=== PATIENT | female | born 2000 | race Two or more races ===

== ENCOUNTER 2020-05-30 21:29 | Emergency (ER) | payer OTHER ==
[2020-05-30 21:42] VITALS: TEMP 98; BMI 18.4
[2020-05-30] MEDS ORDERED: SODIUM CHLORIDE 1,000 ML IV SCH ×2 (22:45→23:00)
[2020-05-30 23:15] LABS: BASO % 0.5 % (0-2.0); EOS % 0.8 % (0-4.5); HEMATOCRIT 36.1 % (32.4-45.2); HEMOGLOBIN 11.4 GM/dL (10.7-15.3); LYMPH % 22.6 % (8-40); MCH 24.3 pg (25.7-33.7); MCHC 31.5 g/dl (32.0-36.0); MEAN CELL VOLUME 77.1 fl (80-96); MEAN PLT VOLUME 9.4 fl (7.5-11.1); MONO % 7.6 % (3.8-10.2); NEUT % 68.5 % (42.8-82.8); PLATELET COUNT 254 K/MM3 (134-434); RBC 4.68 M/mm3 (3.60-5.2); RDW 24.2 % (11.6-15.6); WHITE BLOOD COUNT 6.8 K/mm3 (4.0-10.0)
[2020-05-30 23:22] LABS: INR 1.11 (0.83-1.09); PROTHROMBIN TIME (PATIENT) 13.6 SEC (9.7-13.0)
[2020-05-30 23:25] LABS: ACTIVATED PTT 31.3 SECONDS (25.2-36.5)
[2020-05-30 23:35] LABS: CALCIUM 9.1 mg/dL (8.5-10.1)
[2020-05-30 23:36] LABS: BLOOD UREA NITROGEN 6.7 mg/dL (7-18); MAGNESIUM 2.3 mg/dL (1.8-2.4)
[2020-05-30 23:39] LABS: CREATININE 0.5 mg/dL (0.55-1.3); PHOSPHOROUS 3.9 mg/dL (2.5-4.9)
[2020-05-30 23:40] LABS: BILIRUBIN,TOTAL 0.2 mg/dL (0.2-1); TOT PROT 7.3 g/dl (6.4-8.2)
[2020-05-30 23:50] LABS: ANISOCYTOSIS 3+; MACROCYTOSIS 0; OVALOCYTE 1+; PLATELET ESTIMATE NORMAL; TEAR DROP CELLS 1+
[2020-05-31 00:52] VITALS: BP 106/56; PULSE 103
== END 2020-05-31 00:52 | disposition home or self-care (01) ==
LOC: JER 21:29
DX: R53.1 Weakness (principal); D64.9 Anemia, unspecified
CPT/HCPCS: 36415; 80053; 83690; 83735; 84100; 84703; 85025; 85610; 85730; 86850; 86900; 86901; 87086; 93005; 93010; 99284-25